=== PATIENT | male | born 1990 | race African-American/Black ===

== ENCOUNTER 2020-09-07 01:12 | Inpatient (IN) | payer BC, OTHER ==
[2020-09-07 01:16] VITALS: BMI 25.2
[2020-09-07] MEDS ORDERED: ONDANSETRON *ODT* 4 MG TABLET SL PRN (01:56)
[2020-09-07] MEDS ORDERED: IBUPROFEN 400 MG TABLET (FP) PO PRN (01:56)
[2020-09-07] MEDS ORDERED: guaiFENesin 200 MG/10 ML 10 ML UNIT-DOSE CUPS PO PRN (01:56)
[2020-09-07] MEDS ORDERED: P-EPHED 60MG/TRIPROLIDI 2.5MG TABLET PO PRN (01:56)
[2020-09-07] MEDS ORDERED: MAGNESIUM HYDROX 2400MG/30ML ORAL SUSPENSION 30 ML CUP PO PRN (01:56)
[2020-09-07] MEDS ORDERED: NICOTINE POLACRILEX 2 MG GUM BUC PRN (01:56)
[2020-09-07] MEDS ORDERED: hydrOXYzine PAMOATE 25 MG CAPSULE (FP) PO PRN (01:56)
[2020-09-07] MEDS ORDERED: MENTHOL/PHENOL 1 EACH UD MM PRN (01:56)
[2020-09-07] MEDS ORDERED: NALOXONE (NARCAN) HCL 4 MG/0.1 ML SPRAY NS PRN (01:56)
[2020-09-07] MEDS ORDERED: BISMUTH SUBSALICYLATE 524 MG/30 ML PO PRN (01:56)
[2020-09-07] MEDS ORDERED: MAG HYDROX/AL HYDROX/SIMETH 30 ML UNIT-DOSE CUP PO PRN (01:56)
[2020-09-07] MEDS ORDERED: METHOCARBAMOL 500 MG TABLET PO PRN (01:56)
[2020-09-07] MEDS ORDERED: DICYCLOMINE HCL 10 MG CAPSULE PO PRN (01:56)
[2020-09-07] MEDS ORDERED: NALOXONE HCL 0.4 MG/ML VIAL IM PRN (01:56)
[2020-09-07] MEDS ORDERED: MAGNESIUM CITRATE 300 ML BOTTLE PO PRN (01:56)
[2020-09-07] MEDS ORDERED: ACETAMINOPHEN 325 MG TABLET (FP) PO PRN ×2 (01:56)
[2020-09-07] MEDS ORDERED: cloNIDine HCL 0.1 MG TABLET PO PRN (09:53)
[2020-09-07] MEDS ORDERED: diazePAM 5 MG TABLET PO PRN (09:56)
[2020-09-07] MEDS ORDERED: methaDONE HCL 10 MG TABLET (FOR DETOX USE ONLY) PO ONE (10:15)
[2020-09-07 10:18] LABS: HEMATOCRIT 35.5 % (35.4-49); HEMOGLOBIN 11.3 GM/dL (11.7-16.9); MCH 24.9 pg (25.7-33.7); MCHC 31.7 g/dl (32.0-35.9); MEAN CELL VOLUME 78.6 fl (80-96); MEAN PLT VOLUME 7.6 fl (7.5-11.1); PLATELET COUNT 336 10^3/uL (134-434); RBC 4.52 M/mm3 (4.00-5.60); RDW 15.4 % (11.9-15.9); WHITE BLOOD COUNT 7.9 K/mm3 (4.0-10.0)
[2020-09-07 10:23] LABS: ALBUMIN 3.8 g/dl (3.4-5.0); BLOOD UREA NITROGEN 14.6 mg/dL (7-18)
[2020-09-07] MEDS: PRENATAL VITAMINS W/ FOLIC ACID TABLET (FP) PO SCH (10:23)
[2020-09-07] MEDS: NICOTINE 14 MG/24 HOURS TOPICAL PATCH TD SCH (10:24)
[2020-09-07 10:27] LABS: BILIRUBIN,TOTAL 0.6 mg/dL (0.2-1); TOT PROT 7.4 g/dl (6.4-8.2)
[2020-09-07] MEDS ORDERED: THIAMINE HCL 100 MG TABLET (FP) PO SCH (22:00)
[2020-09-07] MEDS ORDERED: MELATONIN 5 MG TABLETS PO SCH (22:00)
[2020-09-07] MEDS ORDERED: SUVOREXANT 10 MG TABLET PO PRN (22:00)
[2020-09-08] MEDS ORDERED: methaDONE HCL 10 MG TABLET (FOR DETOX USE ONLY) ONE (09:24)
[2020-09-08] MEDS: PRENATAL VITAMINS W/ FOLIC ACID TABLET (FP) PO SCH (10:31)
[2020-09-08] MEDS: NICOTINE 14 MG/24 HOURS TOPICAL PATCH TD SCH (10:31)
[2020-09-08 13:01] VITALS: BP 107/76; PULSE 70; TEMP 96.8
[2020-09-09] MEDS ORDERED: methaDONE HCL 10 MG TABLET (FOR DETOX USE ONLY) PO ONE (10:00)
[2020-09-11] MEDS ORDERED: methaDONE HCL 10 MG TABLET (FOR DETOX USE ONLY) PO ONE (10:00)
== END 2020-09-08 13:46 | disposition left against medical advice (07) | DRG 770 ==
LOC: YASAS 01:12 → Y3N 02:17
PROVIDERS: ADMIT Allergy & Immunology; ATTEND Allergy & Immunology
PROC: HZ2ZZZZ Detoxification Services for Substance Abuse Treatment (ICD-10-PCS; principal; 2020-09-07)
DX: F11.23 Opioid dependence with withdrawal (principal); F14.20 Cocaine dependence, uncomplicated; F16.20 Hallucinogen dependence, uncomplicated; F19.280 Other psychoactive substance dependence with psychoactive substance-induced anxiety disorder; F19.282 Other psychoactive substance dependence with psychoactive substance-induced sleep disorder
CPT/HCPCS: 36415; 80053; 85027; 86780; 93005; 93010; C9803; U0003; U0005